=== PATIENT | female | born 1945 | race Caucasian/White ===

== ENCOUNTER → 2023-05-11 11:11 | Outpatient (CLI) | payer MEDICARE, SELFPAY ==
--- NOTE | 2023-05-15 09:00 | P.PFT.S_ITS ---
Pulmonary Function Test Referral & Results Date Patient Seen: 05/11/23 Results: The?spirometry?demonstrates?an?FVC?of?2.50?L?which?is?78%?of?predicted. The?FEV1?was?measured?at?2.05?L?which?is?85%?of?predicted. The?FEV1/FVC?ratio?was?82?which?is?110%?of?predicted. Following?the?administration?of?bronchodilator?there?was?no?notable?change. Lung?volumes?show?an?SVC?of?2.35?L?which?is?75%?of?predicted. The?diffusing?capacity?was?measured?at?13.53?which?is?45%?of?predicted.??No?hem oglobin?value?was?provided,?so?no?correction?for?potential?anemia?could?be?made, ?if?appropriate. The?maximum?voluntary?ventilation?was?reduced Interpretation: This?study?demonstrates?probably?mild?obstructive?lung?disease?based?on?minimal? reduction?FEV1?although?FEV1/FVC?ratio?is?relatively?preserved.?? There?is?a?mild?reduction?i n?lung?volumes?suggesting?the?presence?of?mild?restrictive?lung?disease?which?ma y?well?explain?the?abnormality?in?the?FEV1?above? There?is?a?more?moderate?to?moderately?severe?reduction?diffusing?cap acity?suggesting?the?presence?of?significant?disease?at?the?capillary?alveolar?l evel Clinical?correlation?suggested
--- NOTE | 2023-05-15 09:00 | PM.PFT.1 ---
Pulmonary Function Test Referral & Results Date Patient Seen: 05/11/23 Results: The?spirometry?demonstrates?an?FVC?of?2.50?L?which?is?78%?of?predicted. The?FEV1?was?measured?at?2.05?L?which?is?85%?of?predicted. The?FEV1/FVC?ratio?was?82?which?is?110%?of?predicted. Following?the?administration?of?bronchodilator?there?was?no?notable?change. Lung?volumes?show?an?SVC?of?2.35?L?which?is?75%?of?predicted. The?diffusing?capacity?was?measured?at?13.53?which?is?45%?of?predicted.??No?hemoglobin?value?was?provided,?so?no?correction?for?potential?anemia?could?be?made,?if?appropriate. The?maximum?voluntary?ventilation?was?reduced Interpretation: This?study?demonstrates?probably?mild?obstructive?lung?disease?based?on?minimal?reduction?FEV1?although?FEV1/FVC?ratio?is?relatively?preserved.?? There?is?a?mild?reduction?in?lung?volumes?suggesting?the?presence?of?mild?restrictive?lung?disease?which?may?well?explain?the?abnormality?in?the?FEV1?above? There?is?a?more?moderate?to?moderately?severe?reduction?diffusing?capacity?suggesting?the?presence?of?significant?disease?at?the?capillary?alveolar?level Clinical?correlation?suggested
== END ==
PROVIDERS: PCP Physician Assistant; Referring Provider Internal Medicine; Visit Provider Internal Medicine
DX: J98.8 Other specified respiratory disorders (principal); Z87.891 Personal history of nicotine dependence
CPT/HCPCS: 94060; 94726; 94729

== ENCOUNTER → 2023-06-30 10:26 | Outpatient (CLI) | payer MEDICARE, SELFPAY ==
[2023-07-01 20:05] LABS: Scleroderma 70 Antibody < 0.2 AI (0.0-0.9)
[2023-07-04 13:24] LABS: Cytoplasmic C-ANCA <1:20 titer (Neg:<1:20); Perinuclear P-ANCA <1:20 titer (Neg:<1:20)
[2023-07-04 14:36] LABS: SS A Ro Sjogrens Antibody < 0.2 AI (0.0-0.9); SS B La Sjogrens Antibody < 0.2 AI (0.0-0.9)
[2023-07-04 18:21] LABS: CCP Antibodies IgG/IgA 10 units (0-19)
[2023-07-05 19:56] LABS: ANA Screen, IFA Negative (.)
[2023-07-07 12:16] LABS: Aureobasidium pullulans IgG Negative (Negative); Micropolyspora faeni IgG Negative (Negative); Pigeon Serum IgG Negative (Negative); Thermoactinomyces sacchari IgG Negative (Negative); Thermoactinomyces vulgaris IgG Negative (Negative)
== END ==
PROVIDERS: PCP Physician Assistant; Referring Provider Internal Medicine; Visit Provider Internal Medicine
DX: J84.9 Interstitial pulmonary disease, unspecified (principal); D84.821 Immunodeficiency due to drugs; T38.0X5A Adverse effect of glucocorticoids and synthetic analogues, initial encounter; J45.40 Moderate persistent asthma, uncomplicated; R91.1 Solitary pulmonary nodule; Z79.52 Long term (current) use of systemic steroids
CPT/HCPCS: 36415; 86038; 86200; 86235; 86256; 86331; 86602; 86606; 86609; 86671; 99215

== ENCOUNTER 2023-08-10 08:52 | Day surgery (SDC) | payer MEDICARE, SELFPAY ==
--- NOTE | 2023-08-10 | PATH_ITS ---
[facility] Accession Number: [id number] No. of containers..01 Tissue . 01 Material submitted: . rectum - RECTAL POLYP . 01 Diagnosis: Rectal Polyp: Tubulovillous adenoma. Negative for high-grade dysplasia or malignancy. MRV 08/16/2023 1422 Local . 01 Electronically signed: . Natanael Us MD, PhD, Pathologist NPI- [id number] . 01 Gross description: . RECTAL POLYP: Received in formalin are 3 fragment(s) of fishman, soft tissue measuring 0.8 x 0.3 x 0.3 cm to 1.5 x 1.3 x 1.3 cm which are serially sectioned and submitted entirely in 4 cassette(s) /ANGEL 08/11/2023 1903 Local . 01 Pathologist provided ICD-10: D12.8 . 01 CPT . 209020 Specimen Comment: A courtesy copy of this report has been sent to [phone] Performed at: 01 [facility] [address] [place] [address], [place], [place] [id number] MD Elmo Cerrato MD Phone: [phone]
[2023-08-10 09:52] VITALS: BP 148/85; PULSE 94; RESP 18; TEMP 36.1; O2SAT 96; BMI 29.7
[2023-08-10] MEDS: LACTATED RINGERS 1,000 ML 42 ML IV (10:06)
--- NOTE | 2023-08-10 10:46 | PM.PREOP ---
Pre-operative Note COVID-19 COVID-19 status: Not tested Interval Note History & Physical reviewed/Exam performed by Physician: Yes Changes to H&P: No ASA Class (for procedural sedation): III
--- NOTE | 2023-08-10 11:56 | PM.OP.COLON ---
Operative Date/Time/Diagnoses Date of procedure: 08/10/23 Time of procedure: 11:57 Pre-op diagnosis: Abnormal PET scan Post-op diagnosis: same Procedure & Clinicians Study performed: Sigmoidoscopy Same procedure as scheduled: Yes Surgeon: Taz Roa Procedure Notes Procedure in detail: Surgeon: Taz Roa MD Anesthesia: Adrianne Mcclure CRNA Procedure: The patient was brought to the endoscopy suite, placed in left lateral decubitus position. The patient was connected to monitoring devices. A time-out was performed. Sedation was administered. Once the patient was adequately sedated, a digital rectal exam was performed. A soft mass was palpable just above the dentate line. The scope was then inserted and advanced to about splenic flexure. There was a tight turn at the splenic flexure with multiple large diverticula and it was felt unsafe to advance into the transverse colon. There were numerous large diverticula throughout the left colon. There was a large masslike polyp in the distal rectum about 1 cm above the dentate line measuring greater than 2 cm. Polyp was lifted with a saline lift. It was taken to passes with a hot snare. The polypectomy site appeared to be hemostatic with no evidence of residual polypoid tissue. The scope was retroflexed in the rectum. No other abnormalities were seen. The scope was straightened and removed. The patient was awakened and brought to recovery. Scope withdrawal time: Not applicable Sedation time: 18 minutes EBL: 3 mL Findings: Diverticulosis and a large rectal polyp just above the dentate line Post-procedure Disposition: PACU
[2023-08-10 12:02] VITALS: BP 108/65; PULSE 72; RESP 19; TEMP 36.8; O2SAT 96
[2023-08-10 12:06] VITALS: BP 109/68; PULSE 86; RESP 13; TEMP 36.7; O2SAT 96
[2023-08-10 12:11] VITALS: BP 133/77; PULSE 83; RESP 14; TEMP 36.7; O2SAT 99
[2023-08-10 12:18] VITALS: BP 135/78; PULSE 85; RESP 16; O2SAT 99
== END 2023-08-10 12:21 | disposition home or self-care (01) ==
PROVIDERS: PCP Physician Assistant; Referring Provider Surgery; Visit Provider Surgery
PROC: 0DJD8ZZ Inspection of Lower Intestinal Tract, Via Natural or Artificial Opening Endoscopic (ICD-10-PCS; CPT 45378; principal; 2023-08-10 10:15)
DX: R93.3 Abnormal findings on diagnostic imaging of other parts of digestive tract (principal); K62.5 Hemorrhage of anus and rectum; K57.30 Diverticulosis of large intestine without perforation or abscess without bleeding; D12.8 Benign neoplasm of rectum
CPT/HCPCS: 45338; 45335; J2704

== ENCOUNTER → 2024-08-07 14:08 | Outpatient (CLI) | payer MEDICARE, SELFPAY ==
--- NOTE | 2024-08-07 14:30 | DI.CT.S_ITS ---
PROCEDURE: CT CHEST WO CON INDICATIONS: Follow Up YVAN lung nodule 2.1c, TECHNIQUE: Noncontrast 2.0-2.5 mm thick sections acquired from the pulmonary apices to the posterior costophrenic angles. 7 mm thick axial MIP and 5 mm coronal and sagittal reformats were then acquired. For radiation dose reduction, the following was used: automated exposure control, adjustment of mA and/or kV according to patient size. COMPARISON: Outside Film, CT, CT CHEST WITHOUT CONTRAST, 03/07/2023, 14:57. FINDINGS: Image quality: Diagnostic. Lower Neck: No enlarged lymph nodes. Thyroid: No thyroid nodules which require sonographic follow up, per consensus guidelines. Axillae: No enlarged lymph nodes. Chest Wall: Coarse calcifications in the right breast.. Bones: Unremarkable. Lungs and Pleura: No pneumothorax or pleural effusions. Left apical mildly spiculated pulmonary nodule abutting the pleura appears mildly increased in size compared to prior measuring approximately 2.4 x 1.3 x 2.1 cm (AP by TV by cc), previously 2.3 x 1.2 x 1.5 cm (remeasured on prior). Redemonstration of diffuse interstitial pulmonary fibrosis. Heart: Heart size is normal. Moderate coronary artery calcifications. No pericardial effusion. Thoracic Vessels: The aorta and pulmonary arteries demonstrate normal size. Atherosclerotic vascular calcifications. Mediastinum and Raquel: Multiple prominent mediastinal lymph nodes are similar to prior. Right axillary clips. Esophagus: No wall thickening. Small hiatal hernia. Upper Abdomen: Visualized upper abdomen solid organs and bowel loops appear normal. Cholecystectomy. IMPRESSION: Mildly increased size of left apical pulmonary nodule abutting the pleura. Recommend correlation with prior biopsy results. Recommend short-term follow-up CT to assess stability. Redemonstration of fibrotic changes. Similar appearance of prominent mediastinal lymph nodes. Fleischner Society criteria for SOLID lung nodule followup. Nodule size (mm)Low-risk patientHigh-risk patient<6 (single or multiple)No routine followup.Optional CT at 12 months. 6-8 (single or multiple)CT at 6-12 months, then optional CT at 18-24 mo.CT at 6-12 months, then CT at 18-24 months. >8 (single)CT at 3 months, PET-CT, or biopsy. Same as for low-risk pts. >8 (multiple)CT at 3-6 months, then optional CT at 18-24 mo.CT at 3-6 months, then CT at 18-24 months. Fleischner Society criteria for SUB-SOLID lung nodule followup. Solitary pure ground-glass nodules<6 mm (ground glass or part solid)No followup needed. 6 mm or larger (ground glass)CT at 6-12 months to confirm persistence, then CT every 2 years until 5 years.6 mm or larger (part solid)CT at 3-6 months to confirm persistence, then annual CT until 5 years if unchanged and solid component remains <6 mm. Multiple sub-solid nodules<6 mmCT at 3-6 months, then CT consider at 2 & 4 years for high risk patients. [address] at 3-6 months. Subsequent management based on most suspicious lesions. Recommendations do not apply to lung cancer screening, patients with immunosuppression, or patients with known primary cancer. Dictated by: Jaswinder Butts M.D. on 08/07/2024 at 17:19 Approved by: Jaswinder Butts M.D. on 08/07/2024 at 17:27
== END ==
PROVIDERS: PCP Physician Assistant; Referring Provider Internal Medicine; Visit Provider Internal Medicine
DX: J84.9 Interstitial pulmonary disease, unspecified (principal); R91.1 Solitary pulmonary nodule; I25.10 Atherosclerotic heart disease of native coronary artery without angina pectoris; K44.9 Diaphragmatic hernia without obstruction or gangrene
CPT/HCPCS: 71250